=== PATIENT | male | born 1950 | race Two or more races ===

== ENCOUNTER 2017-03-18 12:41 | Inpatient (IN) | payer OTHER ==
[~2017-03-18] VITALS: Ht 175.3 cm; Wt 83.0 kg
[2017-03-18 13:35] LABS: BASOPHIL % 0.4 % (0-2); PLATELET COUNT 177 x10^3mcL (130-400); RED CELL DISTRIBUTION WIDTH 14.1 % (11.5-14.5)
[2017-03-18 13:45] LABS: CALCIUM 8.9 mg/dL (8.5-10.1); CARBON DIOXIDE 28.6 mmol/L (21-32); CHLORIDE SERUM 103 mmol/L (98-107); CREATININE SERUM 1.1 mg/dL (0.7-1.3); GFR1 > 60 mL/min; GLUCOSE SERUM 107 mg/dL (74-106); POTASSIUM SERUM 4.4 mmol/L (3.5-5.1); SODIUM SERUM 141 mmol/L (136-145)
[2017-03-18 15:39] VITALS: BP 136/73
[2017-03-18 15:40] LABS: MAGNESIUM 2.2 mg/dL (1.8-2.4)
[2017-03-18 15:41] LABS: CHOLESTEROL/HDL RATIO 5.2
[2017-03-18 15:45] VITALS: Ht 175.3 cm; Wt 83.0 kg
[2017-03-18 15:50] LABS: FREE T4 0.97 ng/dL (0.76-1.46); FREE THYROXINE INDEX 3.1 ug/dL (1.4-4.5); T3 TOTAL 1.21 ng/mL; T4(THYROXINE) 8.7 ug/dL (4.7-13.3)
[2017-03-18] MEDS ORDERED: ATORVASTATIN CA40 M1 PO ×2 (16:43)
[2017-03-18 20:38] VITALS: BP 107/64
[2017-03-19 03:06] LABS: microscopic required? NO
[2017-03-19 03:26] LABS: urine erythrocyte NEGATIVE (NEGATIVE)
[2017-03-19 04:02] LABS: AMPHETAMINE QUAL UR NONE DETECTED (NEG <=1000)
[2017-03-19 05:45] VITALS: BP 122/70
[2017-03-19 06:15] LABS: BASOPHIL % 0.6 % (0-2); PLATELET COUNT 163 x10^3mcL (130-400); RED CELL DISTRIBUTION WIDTH 13.8 % (11.5-14.5)
[2017-03-19 06:40] LABS: CALCIUM 8.4 mg/dL (8.5-10.1); CARBON DIOXIDE 27.3 mmol/L (21-32); CHLORIDE SERUM 106 mmol/L (98-107); CREATININE SERUM 1.1 mg/dL (0.7-1.3); GFR1 > 60 mL/min; GLUCOSE SERUM 93 mg/dL (74-106); MAGNESIUM 2.3 mg/dL (1.8-2.4); PHOSPHOROUS 3.2 mg/dL (2.5-4.9); POTASSIUM SERUM 4.2 mmol/L (3.5-5.1); SODIUM SERUM 140 mmol/L (136-145)
[2017-03-19 09:07] VITALS: BP 114/64
== END 2017-03-19 12:10 | disposition left against medical advice (07) | DRG 206 ==
LOC: ED 12:41 → DU 14:27
PROVIDERS: Emergency Medicine; Family Medicine; ADMIT Family Medicine
DX: M94.0 Chondrocostal junction syndrome [Tietze] (principal); G44.209 Tension-type headache, unspecified, not intractable; R73.03 Prediabetes; E78.5 Hyperlipidemia, unspecified; Z68.27 Body mass index [BMI] 27.0-27.9, adult; Z87.828 Personal history of other (healed) physical injury and trauma
CPT/HCPCS: 82962; 83880; 84439; 86788; 86789; J2405; J3010; J7030; Q0092